=== PATIENT | male | born 1990 | race Caucasian/White ===

== ENCOUNTER 2018-12-30 01:48 | Emergency (ER) | payer MEDICAID, SELFPAY ==
[2018-12-30 01:48] VITALS: BP 159/107; PULSE 89; RESP 16; TEMP 36.9; O2SAT 93; BMI 42.0
--- NOTE | 2018-12-30 02:02 | ED.DCSUM_ITS ---
- ER Visit Summary Date of Service: 12/30/18 Chief Complaint: Right knee pain and swelling History of Present Illness: The patient is a 28 M who is here with a family member so checked into have his right knee checked. He complains of pain when he kneels on it only for at least 2 months. He has no pain currently. He also has noticed some swelling to the front of the knee. Review of systems otherwise negative. Physical Examination: Afebrile vitals unremarkable except blood pressure 159/107 Examination is consistent with prepatellar bursitis. The prepatellar bursa is enlarged it is not erythematous it is not tender it is not hot to the touch he has active full range of motion the knee with no pain no effusion Test Results: Not indicated Emergency Department Course and Treatment: Patient given an Keith wrap and instructed on supportive care. He was discharged. Treatment Plan: [] Disposition: Discharge Impression: Prepatellar bursitis, right This note was generated with [employer] dictation software. It may contain incorrect words, spelling, and punctuation that were not noted in review of the chart prior to signing ED Disposition - Plan for ED Patient: Referrals: NOT,DEFINED [Primary Care Provider] -
--- NOTE | 2018-12-30 02:02 | ED.DEP ---
ED Disposition - Plan for ED Patient: Instructions: ED Bursitis Referrals: NOT,DEFINED [Primary Care Provider] -
== END 2018-12-30 02:27 | disposition home or self-care (01) ==
PROVIDERS: Emergency Provider Emergency Medicine
DX: M70.41 Prepatellar bursitis, right knee (principal); Z87.891 Personal history of nicotine dependence
CPT/HCPCS: 99282